=== PATIENT | female | born 1965 | race Caucasian/White ===

== ENCOUNTER 2016-11-27 17:38 | Emergency (ER) | payer MEDICARE ==
[~2016-11-27] VITALS: Ht 162.6 cm; Wt 92.0 kg
[2016-11-27] MEDS ORDERED: DILAUDID 2MG2 MG/TAB PO (18:00)
[2016-11-27] MEDS ORDERED: MORPHINE SUL15 MG PO (18:00)
[2016-11-27] MEDS ORDERED: CLONAZEPAM2 MG PO (18:00)
[2016-11-27] MEDS ORDERED: FLEXERIL5 MG PO (18:01)
[2016-11-27] MEDS ORDERED: BUSPAR5 MG PO (18:01)
[2016-11-27] MEDS ORDERED: CYMBALTA60 MG PO (18:02)
[2016-11-27] MEDS ORDERED: GABAPENTIN100 MG PO (18:02)
[2016-11-27 19:00] VITALS: BP 125/95
== END 2016-11-27 19:00 | disposition home or self-care (01) ==
LOC: ED 17:38
DX: G89.29 Other chronic pain (principal); M54.9 Dorsalgia, unspecified; F41.9 Anxiety disorder, unspecified; F32.9 Major depressive disorder, single episode, unspecified; F17.210 Nicotine dependence, cigarettes, uncomplicated; Z86.73 Personal history of transient ischemic attack (TIA), and cerebral infarction without residual deficits

== ENCOUNTER 2016-11-30 10:47 | Emergency (ER) | payer MEDICARE ==
[~2016-11-30] VITALS: Ht 162.6 cm; Wt 90.0 kg
[~2016-11-30 10:47] MED LIST: BUSPAR5 MG PO; CLONAZEPAM2 MG PO; CYMBALTA60 MG PO; DILAUDID 2MG2 MG/TAB PO; FLEXERIL5 MG PO; GABAPENTIN100 MG PO; MORPHINE SUL15 MG PO
[2016-11-30] MEDS ORDERED: LASIX 40 MG TAB40 MG PO (11:33)
[2016-11-30] MEDS ORDERED: PHENERGAN25 MG/TAB PO (11:34)
[2016-11-30] MEDS ORDERED: PROTONIX40 M2 PO (11:34)
[2016-11-30 12:10] LABS: HEMATOCRIT 43.9 % (37.0-47.0); HEMOGLOBIN 14.3 g/dl (12.0-16.0); IMMATURE GRANULOCYTES 0.3 % (0.0-1.0); MEAN CORPUSCULAR HGB 30.3 pG CALC (26.0-32.0); MEAN CORPUSCULAR HGB CONC 32.6 g/L CALC (32.0-36.0); NEUT# 9.45 thou/uL (2.00-7.15); RED BLOOD COUNT 4.72 mill/uL (4.20-5.60); RED CELL DISTRI WIDTH 13.7 % (11.5-15.5)
[2016-11-30 12:19] LABS: ALBUMIN 4.3 g/dL (3.2-5.0); ALKALINE PHOSPHATASE 81 u/l (38-126); ANION GAP 20 (6-22 (CALC)); BILIRUBIN, TOTAL 0.4 mg/dL (0.0-1.4); BUN 9 mg/dL (7-17); BUN/CREATININE RATIO 13 (12-20 (CALC)); CALCIUM 9.7 mg/dL (8.4-10.2); CARBON DIOXIDE 19 mmol/l (22-30); CHLORIDE 109 mmol/l (95-108); CREATININE 0.7 mg/dL (0.5-1.0); GFR > 60 ML/MIN (>=60 (CALC)); GFR FOR AFR.AMER. > 60 ML/MIN (>=60 (CALC)); GLUCOSE 101 mg/dL (65-105); SGOT/AST 35 u/l (14-36); SGPT/ALT 53 u/l (9-52); SODIUM 144 mmol/l (137-146); TOTAL PROTEIN 7.3 g/dL (6.3-8.2)
[2016-11-30 12:22] LABS: ETHYL ALCOHOL 58 mg/dl (0-30)
[2016-11-30 13:53] LABS: URINE BILIRUBIN - DIPSTICK NEGATIVE (NEGATIVE); URINE BLOOD DIPSTICK NEGATIVE (NEGATIVE); URINE CLARITY CLEAR; URINE COLOR YELLOW; URINE GLUCOSE - DIPSTICK NEGATIVE (NEGATIVE); URINE KETONE NEGATIVE (NEGATIVE); URINE LEUK ESTERASE NEGATIVE (NEGATIVE); URINE NITRITE - DIPSTICK NEGATIVE (Negative); URINE PH 6.5 (4.5-8.0); URINE PROTEIN - DIPSTICK NEGATIVE (NEG-TRACE); URINE SPECIFIC GRAVITY <=1.005; URINE UROBILINOGEN - DIPSTICK 0.2 E.U./dL (0.2)
[2016-11-30 14:02] LABS: BARBITURATES NEGATIVE (NEGATIVE); COCAINE NEGATIVE (NEGATIVE); METHADONE NEGATIVE (NEGATIVE); OXCYCODONE NEGATIVE (NEGATIVE); TETRAHYDROCANNABIONOL NEGATIVE (NEGATIVE); TRICYLIC ANTIDEPRESSANTS POSITIVE (NEGATIVE)
[2016-11-30 18:30] VITALS: BP 117/62
== END 2016-11-30 18:38 ==
LOC: ED 10:47
PROVIDERS: Emergency Medicine
DX: R45.851 Suicidal ideations (principal); F11.23 Opioid dependence with withdrawal; Z72.89 Other problems related to lifestyle
CPT/HCPCS: J2060